=== PATIENT | male | born 1985 | race Caucasian/White ===

== ENCOUNTER 2018-02-27 09:59 | Emergency (ER) | payer MEDICAID ==
[~2018-02-27] VITALS: Ht 167.6 cm; Wt 63.0 kg
[2018-02-27] MEDS ORDERED: ACETAMINOPHEN WITH CODEINE 300/30MG TABLET PO ONE (10:45)
[2018-02-27 10:53] VITALS: BP 120/68
== END 2018-02-27 10:55 | disposition home or self-care (01) ==
LOC: ER 10:10
DX: K61.1 Rectal abscess (principal); F17.200 Nicotine dependence, unspecified, uncomplicated
CPT/HCPCS: 99283

== ENCOUNTER 2018-03-26 17:28 | Emergency (ER) | payer MEDICAID ==
[~2018-03-26] VITALS: Ht 162.6 cm; Wt 63.0 kg
[2018-03-26 17:47] VITALS: BP 130/74
== END 2018-03-26 22:10 | disposition left against medical advice (07) ==
LOC: ER 17:28
DX: Z53.21 Procedure and treatment not carried out due to patient leaving prior to being seen by health care provider (principal)

== ENCOUNTER 2020-06-13 11:00 | Emergency (ER) | payer MEDICAID ==
[~2020-06-13] VITALS: Ht 170.2 cm; Wt 63.0 kg
[2020-06-13] MEDS ORDERED: ACETAMINOPHEN 325MG TABLET PO ONE (11:45)
[2020-06-13 12:05] VITALS: BP 119/69
== END 2020-06-13 12:06 | disposition home or self-care (01) ==
LOC: ER 11:00
DX: K12.0 Recurrent oral aphthae (principal)
CPT/HCPCS: 99282

== ENCOUNTER 2020-09-29 20:48 | Emergency (ER) | payer SELFPAY ==
[~2020-09-29] VITALS: Ht 170.2 cm; Wt 67.0 kg
[2020-09-29 21:21] VITALS: BP 147/86
[2020-09-29] MEDS ORDERED: ACETAMINOPHEN 325MG TABLET PO ONE (22:30)
== END 2020-09-29 23:07 | disposition left against medical advice (07) ==
LOC: ER 20:48
DX: S06.9X9A Unspecified intracranial injury with loss of consciousness of unspecified duration, initial encounter (principal); S00.212A Abrasion of left eyelid and periocular area, initial encounter; F10.129 Alcohol abuse with intoxication, unspecified; W18.30XA Fall on same level, unspecified, initial encounter; Y93.89 Activity, other specified; Y92.89 Other specified places as the place of occurrence of the external cause; Y99.8 Other external cause status; Y90.9 Presence of alcohol in blood, level not specified
CPT/HCPCS: 93005; 99283

== ENCOUNTER 2020-10-01 18:13 | Emergency (ER) | payer SELFPAY ==
[~2020-10-01] VITALS: Ht 170.2 cm; Wt 64.0 kg
[2020-10-01] MEDS ORDERED: SODIUM CHLORIDE 0.9% 1,000 ML IV ONE (18:45)
[2020-10-01] MEDS ORDERED: LORAZEPAM 2MG/ML CPJ IV ONE (18:45)
[2020-10-01 19:17] LABS: BASOPHILS % 0.3 % (0.0-2.0); EOSINOPHILS % 0.1 % (0.0-5.0); HEMATOCRIT. 40.1 % (42.0-52.0); HEMOGLOBIN. 13.8 g/dL (14.0-18.0); MEAN CORPUSCULAR VOLUME 98.8 fL (80.0-94.0); MEAN PLATELET VOLUME 9.7 fl (7.4-10.4); MONOCYTES % 9.1 % (2.0-8.0); NEUTROPHILS % 80.5 % (40.0-76.0); PLATELET 100 x1000/uL (130-400); RED BLOOD CELL COUNT 4.06 mill/uL (4.7-6.1); RED CELL DISTRIBUTION WIDTH 14.9 % (11.6-14.6)
[2020-10-01 19:20] LABS: CHLORIDE 95 mEq/L (98-107)
[2020-10-01] MEDS ORDERED: CHLO25CA10 MT ×2 (21:43→22:43)
[2020-10-01] MEDS ORDERED: IBUPROFEN 600MG TABLET PO ONE (22:00)
[2020-10-01 22:01] VITALS: BP 147/82
== END 2020-10-01 22:20 | disposition home or self-care (01) ==
LOC: ER 18:13
DX: F10.229 Alcohol dependence with intoxication, unspecified (principal); Y90.0 Blood alcohol level of less than 20 mg/100 ml; Z87.891 Personal history of nicotine dependence
CPT/HCPCS: 36415; 70450; 80048; 84484; 85025; 93005; 96361; 96374; 99284; J2060; J7030

== ENCOUNTER 2021-05-02 12:06 | Emergency (ER) | payer MEDICAID ==
[~2021-05-02] VITALS: Ht 167.6 cm; Wt 66.0 kg
[~2021-05-02 12:06] MED LIST: CHLO25CA10 MT
[2021-05-02] MEDS ORDERED: ONDANSETRON HCL 4MG/2ML INJ IV STA (12:52)
[2021-05-02] MEDS ORDERED: KETOROLAC 30MG/ML VIAL IV STA (12:52)
[2021-05-02 12:58] LABS: BASOPHILS % 0.6 % (0.0-2.0); HEMATOCRIT. 43.5 % (42.0-52.0); HEMOGLOBIN. 14.9 g/dL (14.0-18.0); LYMPHOCYTES % 14.6 % (20.0-50.0); MEAN CORPUSCULAR HEMOGLOBIN 32.9 pg (28.0-32.0); MEAN CORPUSCULAR VOLUME 95.9 fL (80.0-94.0); MONOCYTES % 3.9 % (2.0-8.0); NEUTROPHILS % 80.9 % (40.0-76.0); PLATELET 270 x1000/uL (130-400); RED BLOOD CELL COUNT 4.54 mill/uL (4.7-6.1); RED CELL DISTRIBUTION WIDTH 14.1 % (11.6-14.6)
[2021-05-02] MEDS ORDERED: SODIUM CHLORIDE 0.9% 1,000 ML IV ONE (13:00)
[2021-05-02 13:01] LABS: CHLORIDE 93 mEq/L (98-107)
[2021-05-02 13:05] LABS: ETHANOL BLOOD 87 mg/dL
[2021-05-02] MEDS ORDERED: ONDANSETRON HCL 4MG/2ML INJ IV ONE (14:30)
[2021-05-02] MEDS ORDERED: LORAZEPAM 2MG/ML CPJ IV ONE (15:00)
[2021-05-02] MEDS ORDERED: LORA-250 PO (17:15)
[2021-05-02 17:34] VITALS: BP 128/57
== END 2021-05-02 17:41 | disposition home or self-care (01) ==
LOC: ER 12:06
DX: F10.239 Alcohol dependence with withdrawal, unspecified (principal); F10.229 Alcohol dependence with intoxication, unspecified; Y90.4 Blood alcohol level of 80-99 mg/100 ml; R00.0 Tachycardia, unspecified
CPT/HCPCS: 36415; 71045; 80053; 80320; 83880; 84484; 85025; 93005; 96361; 96374; 96375; 96376; 99285; J1885; J2060; J2405; J7030; G0480

== ENCOUNTER 2022-05-13 10:06 | Emergency (ER) | payer MEDICAID ==
[~2022-05-13] VITALS: Ht 170.2 cm; Wt 67.0 kg
[~2022-05-13 10:06] MED LIST changes: +LORA-250 PO
[2022-05-13] MEDS ORDERED: ONDANSETRON 4MG ODT PO STA (10:40)
[2022-05-13] MEDS ORDERED: CHLORDIAZEPOXIDE 25MG CAPSULE PO ONE (10:45)
[2022-05-13 11:16] LABS: BASOPHILS % 0.1 % (0.0-2.0); EOSINOPHILS % 0.1 % (0.0-5.0); HEMATOCRIT. 42.1 % (42.0-52.0); HEMOGLOBIN. 14.5 g/dL (14.0-18.0); LYMPHOCYTES % 12.6 % (20.0-50.0); MEAN CORPUSCULAR HEMOGLOBIN 32.3 pg (28.0-32.0); MEAN CORPUSCULAR VOLUME 93.6 fL (80.0-94.0); MEAN PLATELET VOLUME 8.6 fl (7.4-10.4); MONOCYTES % 6.4 % (2.0-8.0); NEUTROPHILS % 80.8 % (40.0-76.0); PLATELET 146 x1000/uL (130-400); RED CELL DISTRIBUTION WIDTH 14.4 % (11.6-14.6)
[2022-05-13 11:23] LABS: CHLORIDE 93 mEq/L (98-107)
[2022-05-13 11:30] LABS: ETHANOL BLOOD 97 mg/dL
[2022-05-13 11:55] LABS: *AMPHETAMINES SCREEN URINE NEGATIVE (NEGATIVE); *BARBITURATES SCREEN URINE NEGATIVE (NEGATIVE); *BENZODIAZEPINES SCREEN URINE NEGATIVE (NEGATIVE); *COCAINE SCREEN URINE NEGATIVE (NEGATIVE); CANNABINOID URINE SCREEN NEGATIVE (NEGATIVE); METHADONE URINE SCREEN NEGATIVE (NEGATIVE); OPIATES URINE SCREEN NEGATIVE (NEGATIVE); PHENCYCLIDINE URINE SCREEN NEGATIVE (NEGATIVE)
[2022-05-13] MEDS ORDERED: ACETAMINOPHEN 325MG TABLET PO STA (13:05)
[2022-05-13] MEDS ORDERED: LORAZEPAM 1MG TABLET PO ONE (13:15)
[2022-05-13] MEDS ORDERED: FAMOTIDINE 20MG TABLET PO ONE (13:15)
[2022-05-13] MEDS ORDERED: LORAZEPAM 1MG TABLET PO NR (15:15)
[2022-05-13] MEDS ORDERED: CHLORDIAZEPOXIDE 25MG CAPSULE PO SCH (22:00)
[2022-05-14 04:34] VITALS: BP 128/67
== END 2022-05-14 04:33 | disposition home or self-care (01) ==
LOC: ER 10:06
DX: R10.13 Epigastric pain (principal); R45.851 Suicidal ideations; F10.229 Alcohol dependence with intoxication, unspecified; Y90.4 Blood alcohol level of 80-99 mg/100 ml; Z20.822 Contact with and (suspected) exposure to COVID-19
CPT/HCPCS: 36415; 80053; 80305; 80307; 80320; 80329; 83690; 85025; 99285; C9803; Q0162; U0003; U0005; G0480

== ENCOUNTER 2024-12-19 08:50 | Emergency (ER) | payer MEDICAID ==
[~2024-12-19] VITALS: Ht 162.6 cm; Wt 68.0 kg
[2024-12-19 08:57] VITALS: O2SAT 99
[2024-12-19] MEDS: ACETAMINOPHEN 325MG TABLET PO ONE (09:39)
[2024-12-19] MEDS ORDERED: IBUP-2029 MT (09:56)
[2024-12-19] MEDS ORDERED: MUPI15CR11 TP (09:56)
[2024-12-19 10:11] VITALS: BP 121/73; PULSE 68; RESP 15; TEMP 36.6; O2SAT 97
== END 2024-12-19 10:12 | disposition home or self-care (01) ==
LOC: ER 08:50
DX: M79.671 Pain in right foot (principal); Z79.899 Other long term (current) drug therapy
CPT/HCPCS: 73630; 82962; 99283